=== PATIENT | female | born 1935 | race Caucasian/White ===

== ENCOUNTER 2016-09-07 23:11 | Observation (INO) | payer OTHER, MEDICARE ==
[~2016-09-07] VITALS: Ht 152.4 cm; Wt 62.9 kg
[~2016-09-07 23:11] MED LIST: AMOXICILLIN500 MG PO; ATORVASTATIN CA40 MG PO; AZITHROMYCIN500 M1 PO; CARDIZEM CD120 MG PO; COLACE100 MG PO; COUMADIN,JANTO1.5 MG PO; COUMADIN,JANTOVE1 MG PO; COUMADIN1 MG PO; COUMADIN2 MG PO; COZAAR50 MG PO; ELOCON 0.1% CRE15 GM TP; LISINOPRIL10 MG PO; LO-DOSE ASPIRIN81 M2 PO; LOSARTAN POTAS100 MG PO; MECLIZINE HCL25 MG PO; MIRALAX17 GM PO; PERI-COLACE TA1 EACH PO; PRAVASTATIN SOD80 MG PO; VITAMIN D2000 UNIT PO
[2016-09-08 00:30] LABS: EOSINOPHIL (%) 0.7 % (0-5); EOSINOPHIL COUNT 0.1 K/uL (0-0.3); HEMATOCRIT 36.3 % (36.0-46.0); IMMATURE GRANULOCYTE (%) 0.1 % (0.0-0.7); IMMATURE GRANULOCYTE COUNT 0.1 K/uL; LYMPHOCYTE COUNT 1.8 K/uL (1.0-2.8); MCH 33.3 PG (29.0-34.0); MCV 95.3 FL (83-99); MEAN PLAT.VOLUME 10.1 uM^3 (9.5-12.4); MONOCYTE (%) 8.4 % (3-12); MONOCYTE COUNT 0.6 K/uL (0-0.8); NEUTROPHIL (%) 65.8 % (45-76); NEUTROPHIL COUNT 4.7 K/uL (1.8-6.4); PLATELET COUNT 175 K/uL (156-360); RBC DIS.WIDTH-SD 43.6 % (39-53); RED BLOOD COUNT 3.81 M/uL (3.80-5.20); WHITE BLOOD COUNT 7.1 K/uL (4.1-10.2)
[2016-09-08 00:43] LABS: CHLORIDE 97 mEq/L (99-109); POTASSIUM 3.7 mEq/L (3.7-5.4); SODIUM 131 mEq/L (136-147)
[2016-09-08 00:45] LABS: GLUCOSE 94 mg/dL (70-99)
[2016-09-08 00:46] LABS: ANION GAP 10 MEQ/L (2-14)
[2016-09-08 00:47] LABS: TOTAL BILIRUBIN 0.3 mg/dL (0.0-1.0)
[2016-09-08 00:48] LABS: ALKALINE PHOSPHATASE 79 IU/L (3-129)
[2016-09-08 00:49] LABS: GFR ESTIMATE (CALCULATED) > 59 mL/min/
[2016-09-08 00:50] LABS: UREA NITROGEN (BUN) 13 mg/dL (9-23)
[2016-09-08 00:54] LABS: TROP-I INTERPRETATION NEGATIVE; TROPONIN-I < 0.01 ng/mL (0.0-0.30)
[2016-09-08 01:05] LABS: PROTHROMBIN TIME 31.5 (9.2-11.2)
[2016-09-08 01:43] LABS: ADD MIUA? YES; BILIRUBIN NEGATIVE; BLOOD TRACE; COLOR YELLOW ((YELLOW)); GLUCOSE (STRIP) NEGATIVE; KETONES NEGATIVE; LEUKOCYTES NEGATIVE; NITRITE NEGATIVE; PH, URINE 6.5 (5-8); PROTEIN (STRIP) NEGATIVE; SPECIFIC GRAVITY 1.007 (1.000-1.030); UROBILINOGEN 0.2 MG/DL (0.2-1.0)
[2016-09-08 01:58] LABS: BACTERIA NONE SEEN /HPF; EPITHELIAL CELLS RARE /HPF; MUCUS TRACE /LPF; RED BLOOD CELLS 0-5 /HPF (0-5); UCUL ADDED? NO; WHITE BLOOD CELLS 0-5 /HPF (0-5)
[2016-09-08 04:31] VITALS: BP 141/68
[2016-09-08 09:30] VITALS: BP 135/76
[2016-09-08] MEDS ORDERED: LOSARTAN POTASS25 MG PO (09:42)
[2016-09-08] MEDS ORDERED: COUMADIN1 MG PO (12:03)
== END 2016-09-08 14:12 | disposition home or self-care (01) ==
LOC: EME 23:11 → EDOF 09-08 02:39 → 5WEST 09-08 03:50
PROVIDERS: Emergency Medicine
DX: R53.1 Weakness (principal); E87.1 Hypo-osmolality and hyponatremia; I10 Essential (primary) hypertension; I48.0 Paroxysmal atrial fibrillation; K21.9 Gastro-esophageal reflux disease without esophagitis; R06.02 Shortness of breath; F41.9 Anxiety disorder, unspecified; Z86.73 Personal history of transient ischemic attack (TIA), and cerebral infarction without residual deficits; R41.0 Disorientation, unspecified; Z79.01 Long term (current) use of anticoagulants; Z88.0 Allergy status to penicillin; Z88.1 Allergy status to other antibiotic agents; Z88.8 Allergy status to other drugs, medicaments and biological substances; Z91.041 Radiographic dye allergy status; Z59.2 Discord with neighbors, lodgers and landlord
CPT/HCPCS: 70450; 71020; 80053; 81003; 84484; 85025; 85610; 93005; 99281; 99284; G0378; J7040

== ENCOUNTER 2017-04-26 13:04 | Observation (INO) | payer OTHER, MEDICARE ==
[~2017-04-26] VITALS: Ht 152.4 cm; Wt 61.8 kg
[~2017-04-26 13:04] MED LIST changes: +LOSARTAN POTASS25 MG PO
[2017-04-26 14:34] LABS: HEMATOCRIT 39.8 % (36.0-46.0); MCH 33.7 PG (29.0-34.0); MCHC 34.9 G/DL (30.0-36.0); MCV 96.4 FL (83-99); MEAN PLAT.VOLUME 9.7 uM^3 (9.5-12.4); PLATELET COUNT 196 K/uL (156-360); RBC DIS.WIDTH-CV 12.7 % (11.8-14.6); RBC DIS.WIDTH-SD 45.6 % (39-53); RED BLOOD COUNT 4.13 M/uL (3.80-5.20); WHITE BLOOD COUNT 8.1 K/uL (4.1-10.2)
[2017-04-26 14:47] LABS: CHLORIDE 100 mEq/L (99-109); POTASSIUM 4.1 mEq/L (3.7-5.4); SODIUM 133 mEq/L (136-147)
[2017-04-26 14:49] LABS: GLUCOSE 105 mg/dL (70-99)
[2017-04-26 14:50] LABS: ANION GAP 10 MEQ/L (2-14)
[2017-04-26 14:52] LABS: GFR ESTIMATE (CALCULATED) > 59 mL/min/
[2017-04-26 14:53] LABS: UREA NITROGEN (BUN) 16 mg/dL (9-23)
[2017-04-26 17:51] LABS: ADD MIUA? NO; BILIRUBIN NEGATIVE; BLOOD NEGATIVE; COLOR COLORLESS ((YELLOW)); GLUCOSE (STRIP) NEGATIVE; KETONES 5; LEUKOCYTES NEGATIVE; NITRITE NEGATIVE; PROTEIN (STRIP) NEGATIVE; SPECIFIC GRAVITY 1.004 (1.000-1.030); UCUL ADDED? NO; UROBILINOGEN 0.2 MG/DL (0.2-1.0)
[2017-04-26 20:57] LABS: INTER. NORMALIZED RATIO 4.3; PROTHROMBIN TIME 50.6 SEC (10.2-12.9)
[2017-04-26 22:37] VITALS: BP 182/80
[2017-04-26 22:45] LABS: Estimated Average Glucose 123 mg/dL (70-123); HEMOGLOBIN A1c (GLYCOHEMOGLOB) 5.9 % HGB (Below 5.7)
[2017-04-26 23:10] VITALS: BP 150/82
[2017-04-27 04:47] VITALS: BP 159/73
[2017-04-27 05:55] LABS: MCH 33.1 PG (29.0-34.0); MCHC 33.8 G/DL (30.0-36.0); PLATELET COUNT 173 K/uL (156-360); RBC DIS.WIDTH-CV 12.8 % (11.8-14.6); RED BLOOD COUNT 4.08 M/uL (3.80-5.20); WHITE BLOOD COUNT 6.6 K/uL (4.1-10.2)
[2017-04-27 06:27] LABS: ALKALINE PHOSPHATASE 72 IU/L (3-129); ANION GAP 8 MEQ/L (2-14); CHLORIDE 105 MEQ/L (99-109); GFR ESTIMATE (CALCULATED) > 59 mL/min/; GLUCOSE 105 mg/dL (70-99); POTASSIUM 4.4 MEQ/L (3.7-5.4); SAMPLE HEMOLYSIS CHECK 0; SAMPLE ICTERIC CHECK 0; SAMPLE LIPEMIA CHECK 0; SODIUM 139 MEQ/L (136-147); TOTAL BILIRUBIN 0.4 MG/DL (0.0-1.0); UREA NITROGEN (BUN) 15 mg/dL (9-23)
[2017-04-27 06:29] LABS: INTER. NORMALIZED RATIO 3.9; PROTHROMBIN TIME 45.7 SEC (10.2-12.9)
[2017-04-27 07:25] VITALS: BP 140/60
[2017-04-27 07:39] LABS: HDL CHOLESTEROL 63 MG/DL (Desirable>=50); LDL CHOLESTEROL 120 mg/dL (Desirable<100); NON-HDL CHOLESTEROL 136 mg/dL (Desirable<160); SAMPLE HEMOLYSIS CHECK 0; SAMPLE ICTERIC CHECK 0; SAMPLE LIPEMIA CHECK 0; TOTAL CHOLESTEROL 199 mg/dL (Desirable<200); TRIGLYCERIDES 81 MG/DL (Normal: <150)
[2017-04-27 12:18] VITALS: BP 137/74
== END 2017-04-27 13:52 | disposition home or self-care (01) ==
LOC: EME 13:04 → EDOF 20:08 → 5WEST 20:08 → EDOF 20:08 → ENRESERV 20:10 → EDOF 20:30 → 5WEST 21:41
PROVIDERS: Emergency Medicine; Internal Medicine
DX: R42 Dizziness and giddiness (principal); I11.0 Hypertensive heart disease with heart failure; I50.9 Heart failure, unspecified; R79.1 Abnormal coagulation profile; R73.03 Prediabetes; Z86.73 Personal history of transient ischemic attack (TIA), and cerebral infarction without residual deficits; I48.0 Paroxysmal atrial fibrillation; Z79.01 Long term (current) use of anticoagulants; E78.5 Hyperlipidemia, unspecified; J44.9 Chronic obstructive pulmonary disease, unspecified; E87.1 Hypo-osmolality and hyponatremia; K21.9 Gastro-esophageal reflux disease without esophagitis; Z88.0 Allergy status to penicillin; Z88.8 Allergy status to other drugs, medicaments and biological substances; Z91.041 Radiographic dye allergy status
CPT/HCPCS: 70450; 70551; 71020; 80048; 80053; 80061; 81003; 83036; 85027; 85610; 93005; 99281; 99285; G0378; G8978 GP CH; G8979 GP CH; G8980 GP CH; G8987 GO CH; G8988 GO CH; G8989 GO CH; J7030

== ENCOUNTER 2017-05-08 23:22 | Emergency (ER) | payer OTHER, MEDICARE ==
[~2017-05-08] VITALS: Ht 152.4 cm; Wt 62.2 kg
[2017-05-09 00:11] LABS: EOSINOPHIL (%) 0.5 % (0-5); HEMATOCRIT 38.9 % (36.0-46.0); IMMATURE GRANULOCYTE (%) 0.3 % (0.0-0.7); LYMPHOCYTE COUNT 1.7 K/uL (1.0-2.8); MCH 33.6 PG (29.0-34.0); MCHC 35.7 G/DL (30.0-36.0); MEAN PLAT.VOLUME 11.4 uM^3 (9.5-12.4); MONOCYTE (%) 6.9 % (3-12); MONOCYTE COUNT 0.5 K/uL (0-0.8); NEUTROPHIL (%) 68.9 % (45-76); PLATELET COUNT 218 K/uL (156-360); RBC DIS.WIDTH-CV 12.5 % (11.8-14.6); RBC DIS.WIDTH-SD 43.4 % (39-53); RED BLOOD COUNT 4.14 M/uL (3.80-5.20); WHITE BLOOD COUNT 7.3 K/uL (4.1-10.2)
[2017-05-09 00:29] LABS: TROP-I INTERPRETATION NEGATIVE; TROPONIN-I < 0.01 ng/mL (0.0-0.30)
[2017-05-09 00:36] LABS: PROTHROMBIN TIME 54.7 SEC (10.2-12.9)
[2017-05-09 00:37] LABS: INTER. NORMALIZED RATIO 4.7
[2017-05-09 00:39] LABS: PTT 42.7 SEC (25-37)
[2017-05-09 00:41] LABS: CHLORIDE 99 mEq/L (99-109); POTASSIUM 3.3 mEq/L (3.7-5.4); SODIUM 130 mEq/L (136-147)
[2017-05-09 00:43] LABS: GLUCOSE 110 mg/dL (70-99)
[2017-05-09 00:44] LABS: ANION GAP 11 MEQ/L (2-14)
[2017-05-09 00:46] LABS: GFR ESTIMATE (CALCULATED) > 59 mL/min/
[2017-05-09 00:47] LABS: UREA NITROGEN (BUN) 12 mg/dL (9-23)
[2017-05-09 03:48] LABS: ADD MIUA? YES; BILIRUBIN NEGATIVE; BLOOD SMALL; COLOR STRAW ((YELLOW)); GLUCOSE (STRIP) NEGATIVE; KETONES 5; LEUKOCYTES NEGATIVE; NITRITE NEGATIVE; PROTEIN (STRIP) NEGATIVE; SPECIFIC GRAVITY 1.004 (1.000-1.030); UROBILINOGEN 0.2 MG/DL (0.2-1.0)
[2017-05-09 03:49] LABS: BACTERIA RARE /HPF; EPITHELIAL CELLS RARE /HPF; MUCUS TRACE /LPF; RED BLOOD CELLS 0-5 /HPF (0-5); UCUL ADDED? NO; WHITE BLOOD CELLS 0-5 /HPF (0-5)
[2017-05-09 05:00] VITALS: BP 147/86
== END 2017-05-09 05:01 | disposition home or self-care (01) ==
LOC: EME 23:22
PROVIDERS: Emergency Medicine
DX: R42 Dizziness and giddiness (principal); I11.0 Hypertensive heart disease with heart failure; I50.9 Heart failure, unspecified; Z91.81 History of falling; Z86.73 Personal history of transient ischemic attack (TIA), and cerebral infarction without residual deficits; Z79.01 Long term (current) use of anticoagulants; J45.909 Unspecified asthma, uncomplicated; K21.9 Gastro-esophageal reflux disease without esophagitis; F41.9 Anxiety disorder, unspecified; Z88.0 Allergy status to penicillin; Z88.8 Allergy status to other drugs, medicaments and biological substances
CPT/HCPCS: 70450; 71010; 80048; 81003; 84484; 85025; 85610; 85730; 93005; 99281; 99285; J7030

== ENCOUNTER 2017-08-28 17:52 | Emergency (ER) | payer OTHER, MEDICARE ==
[~2017-08-28] VITALS: Ht 152.4 cm; Wt 55.1 kg
[2017-08-28 18:43] LABS: HEMATOCRIT 43.2 % (36.0-46.0); HEMOGLOBIN 14.9 G/DL (11.9-15.5); MCH 34.1 PG (29.0-34.0); MCHC 34.5 G/DL (30.0-36.0); MCV 98.9 FL (83-99); PLATELET COUNT 199 K/uL (156-360); RBC DIS.WIDTH-CV 13.1 % (11.8-14.6); RBC DIS.WIDTH-SD 48.4 % (39-53); RED BLOOD COUNT 4.37 M/uL (3.80-5.20); WHITE BLOOD COUNT 7.6 K/uL (4.1-10.2)
[2017-08-28 18:54] LABS: CHLORIDE 101 mEq/L (99-109); POTASSIUM 3.7 mEq/L (3.7-5.4); SODIUM 136 mEq/L (136-147)
[2017-08-28 18:55] LABS: GLUCOSE 95 mg/dL (70-99)
[2017-08-28 18:59] LABS: CREATININE 0.7 mg/dL (0.6-1.3); GFR ESTIMATE (CALCULATED) > 59 mL/min/
[2017-08-28 19:00] LABS: UREA NITROGEN (BUN) 14 mg/dL (9-23)
[2017-08-28 19:06] LABS: TROP-I INTERPRETATION NEGATIVE; TROPONIN-I < 0.01 ng/mL (0.0-0.30)
[2017-08-28 21:47] VITALS: BP 145/72
== END 2017-08-28 21:57 | disposition home or self-care (01) ==
LOC: EME 17:52
DX: I49.3 Ventricular premature depolarization (principal); I48.91 Unspecified atrial fibrillation; I11.0 Hypertensive heart disease with heart failure; J45.909 Unspecified asthma, uncomplicated; K21.9 Gastro-esophageal reflux disease without esophagitis; F41.9 Anxiety disorder, unspecified; Z79.01 Long term (current) use of anticoagulants; Z86.73 Personal history of transient ischemic attack (TIA), and cerebral infarction without residual deficits; Z88.0 Allergy status to penicillin; Z88.8 Allergy status to other drugs, medicaments and biological substances; Z91.041 Radiographic dye allergy status
CPT/HCPCS: 71046; 80048; 84484; 85027; 93005; 99281; 99285

== ENCOUNTER 2017-09-29 09:26 | Emergency (ER) | payer OTHER, MEDICARE ==
[~2017-09-29] VITALS: Ht 152.4 cm; Wt 56.9 kg
[2017-09-29 10:45] LABS: BASOPHIL (%) 0.6 % (0-1); BASOPHIL COUNT 0.1 K/uL (0-0.1); EOSINOPHIL (%) 0.6 % (0-5); EOSINOPHIL COUNT 0.1 K/uL (0-0.3); HEMATOCRIT 37.4 % (36.0-46.0); HEMOGLOBIN 13.3 G/DL (11.9-15.5); IMMATURE GRANULOCYTE (%) 0.5 % (0.0-0.7); LYMPHOCYTE (%) 11.9 % (15-42); MCH 34.8 PG (29.0-34.0); MCHC 35.6 G/DL (30.0-36.0); MCV 97.9 FL (83-99); MONOCYTE (%) 6.3 % (3-12); MONOCYTE COUNT 0.5 K/uL (0-0.8); NEUTROPHIL (%) 80.1 % (45-76); NEUTROPHIL COUNT 6.8 K/uL (1.8-6.4); PLATELET COUNT 184 K/uL (156-360); RBC DIS.WIDTH-CV 12.8 % (11.8-14.6); RBC DIS.WIDTH-SD 45.9 % (39-53); RED BLOOD COUNT 3.82 M/uL (3.80-5.20); WHITE BLOOD COUNT 8.5 K/uL (4.1-10.2)
[2017-09-29 10:50] LABS: INTER. NORMALIZED RATIO 3.3
[2017-09-29 10:55] LABS: CHLORIDE 102 mEq/L (99-109); POTASSIUM 4.1 mEq/L (3.7-5.4); SODIUM 134 mEq/L (136-147)
[2017-09-29 10:57] LABS: GLUCOSE 90 mg/dL (70-99)
[2017-09-29 11:01] LABS: CREATININE 0.7 mg/dL (0.6-1.3); GFR ESTIMATE (CALCULATED) > 59 mL/min/
[2017-09-29 11:02] LABS: UREA NITROGEN (BUN) 21 mg/dL (9-23)
[2017-09-29 12:29] VITALS: BP 143/75
[2017-09-29 13:44] LABS: APPEARANCE CLEAR ((CLEAR)); BILIRUBIN NEGATIVE; BLOOD SMALL; COLOR COLORLESS ((YELLOW)); GLUCOSE (STRIP) NEGATIVE; KETONES 5; LEUKOCYTES NEGATIVE; NITRITE NEGATIVE; PROTEIN (STRIP) NEGATIVE; SPECIFIC GRAVITY 1.004 (1.000-1.030); UROBILINOGEN 0.2 MG/DL (0.2-1.0)
[2017-09-29 13:49] LABS: BACTERIA NONE SEEN /HPF; EPITHELIAL CELLS RARE /HPF; MUCUS NONE SEEN /LPF; RED BLOOD CELLS 0-5 /HPF (0-5); UCUL ADDED? NO; WHITE BLOOD CELLS 0-5 /HPF (0-5)
== END 2017-09-29 14:04 | disposition home or self-care (01) ==
LOC: EME 09:26
PROVIDERS: Emergency Medicine
DX: S09.90XA Unspecified injury of head, initial encounter (principal); W18.30XA Fall on same level, unspecified, initial encounter; Z79.01 Long term (current) use of anticoagulants; I11.0 Hypertensive heart disease with heart failure; I50.9 Heart failure, unspecified; I48.91 Unspecified atrial fibrillation; J45.909 Unspecified asthma, uncomplicated; K21.9 Gastro-esophageal reflux disease without esophagitis; Z86.73 Personal history of transient ischemic attack (TIA), and cerebral infarction without residual deficits; F41.9 Anxiety disorder, unspecified; Z88.0 Allergy status to penicillin; Z88.8 Allergy status to other drugs, medicaments and biological substances
CPT/HCPCS: 70450; 71046; 80048; 81003; 85025; 85610; 93005; 99281; 99284

== ENCOUNTER 2017-10-30 19:24 | Inpatient (IN) | payer OTHER, MEDICARE ==
[~2017-10-30] VITALS: Ht 152.4 cm; Wt 51.7 kg
[2017-10-30 20:06] LABS: BASOPHIL (%) 0.4 % (0-1); EOSINOPHIL COUNT 0.1 K/uL (0-0.3); HEMATOCRIT 37.8 % (36.0-46.0); HEMOGLOBIN 13.2 G/DL (11.9-15.5); IMMATURE GRANULOCYTE (%) 0.1 % (0.0-0.7); LYMPHOCYTE COUNT 1.3 K/uL (1.0-2.8); MCHC 34.9 G/DL (30.0-36.0); MCV 97.4 FL (83-99); MONOCYTE (%) 6.3 % (3-12); MONOCYTE COUNT 0.4 K/uL (0-0.8); NEUTROPHIL (%) 73.2 % (45-76); PLATELET COUNT 160 K/uL (156-360); RBC DIS.WIDTH-CV 12.8 % (11.8-14.6); RBC DIS.WIDTH-SD 45.6 % (39-53); RED BLOOD COUNT 3.88 M/uL (3.80-5.20); WHITE BLOOD COUNT 6.8 K/uL (4.1-10.2)
[2017-10-30 20:14] LABS: ALBUMIN 3.6 g/dL (3.2-4.8); CHLORIDE 102 mEq/L (99-109); POTASSIUM 3.7 mEq/L (3.7-5.4); SODIUM 135 mEq/L (136-147)
[2017-10-30 20:16] LABS: INTER. NORMALIZED RATIO 2.9
[2017-10-30 20:17] LABS: GLUCOSE 98 mg/dL (70-99); TOTAL PROTEIN 5.7 g/dL (6.4-8.3)
[2017-10-30 20:19] LABS: PTT 38.3 SEC (25-37); TOTAL BILIRUBIN 0.3 mg/dL (0.0-1.0)
[2017-10-30 20:20] LABS: ALKALINE PHOSPHATASE 104 IU/L (3-129); CREATININE 0.6 mg/dL (0.6-1.3); GFR ESTIMATE (CALCULATED) > 59 mL/min/
[2017-10-30 20:21] LABS: UREA NITROGEN (BUN) 15 mg/dL (9-23)
[2017-10-30 20:22] LABS: AST (GOT) 20 IU/L (2-34)
[2017-10-30 20:23] LABS: ALT (GPT) 25 IU/L (3-49)
[2017-10-30 21:23] LABS: APPEARANCE CLEAR ((CLEAR)); BILIRUBIN NEGATIVE; BLOOD NEGATIVE; COLOR COLORLESS ((YELLOW)); GLUCOSE (STRIP) NEGATIVE; KETONES 5; LEUKOCYTES NEGATIVE; NITRITE NEGATIVE; PROTEIN (STRIP) NEGATIVE; SPECIFIC GRAVITY 1.004 (1.000-1.030); UCUL ADDED? NO; UROBILINOGEN 0.2 MG/DL (0.2-1.0)
[2017-10-31] MEDS ORDERED: MIRALAX17 GM PO (00:20)
[2017-10-31 02:53] LABS: HDL CHOLESTEROL 57 MG/DL (Desirable>=50); LDL CHOLESTEROL 105 mg/dL (Desirable<100); NON-HDL CHOLESTEROL 117 mg/dL (Desirable<160); TOTAL CHOLESTEROL 174 mg/dL (Desirable<200); TRIGLYCERIDES 60 MG/DL (Normal: <150)
[2017-10-31 03:04] VITALS: BP 151/72
[2017-10-31 06:08] LABS: HEMATOCRIT 34.9 % (36.0-46.0); HEMOGLOBIN 12.2 G/DL (11.9-15.5); MCH 34.4 PG (29.0-34.0); MCV 98.3 FL (83-99); PLATELET COUNT 151 K/uL (156-360); RBC DIS.WIDTH-CV 12.7 % (11.8-14.6); RBC DIS.WIDTH-SD 45.5 % (39-53); RED BLOOD COUNT 3.55 M/uL (3.80-5.20); WHITE BLOOD COUNT 6.1 K/uL (4.1-10.2)
[2017-10-31 06:11] LABS: INTER. NORMALIZED RATIO 2.9
[2017-10-31 06:36] LABS: CHLORIDE 106 MEQ/L (99-109); CREATININE 0.6 MG/DL (0.6-1.3); GFR ESTIMATE (CALCULATED) > 59 mL/min/; GLUCOSE 120 mg/dL (70-99); POTASSIUM 3.6 MEQ/L (3.7-5.4); SODIUM 140 MEQ/L (136-147); UREA NITROGEN (BUN) 10 mg/dL (9-23)
[2017-10-31 08:00] VITALS: BP 127/71
[2017-10-31 14:28] LABS: HEMOGLOBIN A1c (GLYCOHEMOGLOB) 5.7 % (Below 5.7)
[2017-10-31 15:50] VITALS: BP 118/61
[2017-10-31 19:58] VITALS: BP 113/65
[2017-11-01] VITALS: BP 146/69
[2017-11-01 04:00] VITALS: BP 137/72
[2017-11-01 08:18] VITALS: BP 139/67
[2017-11-01] MEDS ORDERED: ANTIVERT12.5 MG PO (10:59)
[2017-11-01 12:41] VITALS: BP 138/70
[2017-11-01 16:43] VITALS: BP 135/73
== END 2017-11-01 17:18 | disposition home or self-care (01) | DRG 69 ==
LOC: EME 19:24 → 5SOUTH 10-31 01:33 → EDOF 10-31 01:33 → CANRESERV 10-31 01:37 → ENRESERV 10-31 01:37 → 5SOUTH 10-31 02:39 → ENPENDDIS 11-01 11:29 → 5SOUTH 11-01 17:18
PROVIDERS: Emergency Medicine; Hospitalist
DX: G45.9 Transient cerebral ischemic attack, unspecified (principal); H81.399 Other peripheral vertigo, unspecified ear; I48.2 Chronic atrial fibrillation; I11.0 Hypertensive heart disease with heart failure; E87.1 Hypo-osmolality and hyponatremia; E78.5 Hyperlipidemia, unspecified; F32.9 Major depressive disorder, single episode, unspecified; F41.9 Anxiety disorder, unspecified; H91.90 Unspecified hearing loss, unspecified ear; I73.9 Peripheral vascular disease, unspecified; K21.9 Gastro-esophageal reflux disease without esophagitis; J45.909 Unspecified asthma, uncomplicated; H93.19 Tinnitus, unspecified ear; Z86.73 Personal history of transient ischemic attack (TIA), and cerebral infarction without residual deficits; Z90.710 Acquired absence of both cervix and uterus; Z79.01 Long term (current) use of anticoagulants; Y93.G1 Activity, food preparation and clean up; Z91.81 History of falling
CPT/HCPCS: 70450; 70551; 71045; 76536; 80048; 80053; 80061; 81003; 83036; 85025; 85027; 85610; 85730; 87502; 93005; 93880; 99281; 99285; J7030

== ENCOUNTER 2017-11-07 04:18 | Emergency (ER) | payer OTHER, MEDICARE ==
[~2017-11-07] VITALS: Ht 152.4 cm; Wt 54.7 kg
[~2017-11-07 04:18] MED LIST changes: +ANTIVERT12.5 MG PO
[2017-11-07 05:38] LABS: BASOPHIL (%) 0.5 % (0-1); EOSINOPHIL (%) 0.9 % (0-5); EOSINOPHIL COUNT 0.1 K/uL (0-0.3); HEMATOCRIT 37.1 % (36.0-46.0); IMMATURE GRANULOCYTE (%) 0.3 % (0.0-0.7); LYMPHOCYTE (%) 17.6 % (15-42); LYMPHOCYTE COUNT 1.1 K/uL (1.0-2.8); MCH 34.5 PG (29.0-34.0); MCV 98.4 FL (83-99); MONOCYTE COUNT 0.5 K/uL (0-0.8); NEUTROPHIL (%) 73.7 % (45-76); NEUTROPHIL COUNT 4.8 K/uL (1.8-6.4); PLATELET COUNT 164 K/uL (156-360); RBC DIS.WIDTH-CV 12.8 % (11.8-14.6); RBC DIS.WIDTH-SD 46.5 % (39-53); RED BLOOD COUNT 3.77 M/uL (3.80-5.20); WHITE BLOOD COUNT 6.5 K/uL (4.1-10.2)
[2017-11-07 05:44] LABS: INTER. NORMALIZED RATIO 2.5
[2017-11-07 05:52] LABS: ALBUMIN 3.7 g/dL (3.2-4.8); CHLORIDE 100 mEq/L (99-109); POTASSIUM 3.7 mEq/L (3.7-5.4); SODIUM 131 mEq/L (136-147)
[2017-11-07 05:55] LABS: GLUCOSE 105 mg/dL (70-99); TOTAL PROTEIN 5.6 g/dL (6.4-8.3)
[2017-11-07 05:57] LABS: TOTAL BILIRUBIN 0.3 mg/dL (0.0-1.0)
[2017-11-07 05:58] LABS: ALKALINE PHOSPHATASE 129 IU/L (3-129); CREATININE 0.6 mg/dL (0.6-1.3); GFR ESTIMATE (CALCULATED) > 59 mL/min/
[2017-11-07 05:59] LABS: UREA NITROGEN (BUN) 15 mg/dL (9-23)
[2017-11-07 06:00] LABS: AST (GOT) 24 IU/L (2-34)
[2017-11-07 06:01] LABS: ALT (GPT) 30 IU/L (3-49)
[2017-11-07 06:08] LABS: TROP-I INTERPRETATION NEGATIVE; TROPONIN-I < 0.01 ng/mL (0.0-0.30)
[2017-11-07 06:14] LABS: APPEARANCE CLEAR ((CLEAR)); BILIRUBIN NEGATIVE; BLOOD SMALL; COLOR COLORLESS ((YELLOW)); GLUCOSE (STRIP) NEGATIVE; KETONES NEGATIVE; LEUKOCYTES NEGATIVE; NITRITE NEGATIVE; PROTEIN (STRIP) NEGATIVE; SPECIFIC GRAVITY 1.003 (1.000-1.030); UROBILINOGEN 0.2 MG/DL (0.2-1.0)
[2017-11-07 06:19] LABS: BACTERIA NONE SEEN /HPF; EPITHELIAL CELLS RARE /HPF; MUCUS NONE SEEN /LPF; RED BLOOD CELLS 0-5 /HPF (0-5); UCUL ADDED? NO; WHITE BLOOD CELLS NONE SEEN /HPF (0-5)
[2017-11-07 06:38] VITALS: BP 135/80
== END 2017-11-07 06:38 | disposition home or self-care (01) ==
LOC: EME 04:18
PROVIDERS: Emergency Medicine
DX: R42 Dizziness and giddiness (principal); I48.91 Unspecified atrial fibrillation; J45.909 Unspecified asthma, uncomplicated; Z86.73 Personal history of transient ischemic attack (TIA), and cerebral infarction without residual deficits; R73.03 Prediabetes; I11.0 Hypertensive heart disease with heart failure; I50.9 Heart failure, unspecified; K21.9 Gastro-esophageal reflux disease without esophagitis; F41.9 Anxiety disorder, unspecified; Z88.0 Allergy status to penicillin; Z88.8 Allergy status to other drugs, medicaments and biological substances
CPT/HCPCS: 80053; 81003; 82010; 84484; 85025; 85610; 93005; 99281; 99284

== ENCOUNTER 2018-02-25 19:28 | Emergency (ER) | payer OTHER, MEDICARE ==
[~2018-02-25] VITALS: Ht 152.4 cm; Wt 56.3 kg
[2018-02-25 21:44] LABS: HEMOGLOBIN 13.9 G/DL (11.9-15.5); MCH 33.8 PG (29.0-34.0); MCHC 34.8 G/DL (30.0-36.0); MCV 97.3 FL (83-99); PLATELET COUNT 145 K/uL (156-360); RBC DIS.WIDTH-CV 13.4 % (11.8-14.6); RBC DIS.WIDTH-SD 48.8 % (39-53); RED BLOOD COUNT 4.11 M/uL (3.80-5.20); WHITE BLOOD COUNT 8.9 K/uL (4.1-10.2)
[2018-02-25 21:46] LABS: CHLORIDE 101 mEq/L (99-109); POTASSIUM 3.7 mEq/L (3.7-5.4); SODIUM 136 mEq/L (136-147)
[2018-02-25 21:48] LABS: GLUCOSE 110 mg/dL (70-99); TOTAL PROTEIN 6.5 g/dL (6.4-8.3)
[2018-02-25 21:50] LABS: TOTAL BILIRUBIN 0.6 mg/dL (0.0-1.0)
[2018-02-25 21:52] LABS: ALKALINE PHOSPHATASE 110 IU/L (3-129); CREATININE 0.8 mg/dL (0.6-1.3); GFR ESTIMATE (CALCULATED) > 59 mL/min/
[2018-02-25 21:53] LABS: UREA NITROGEN (BUN) 15 mg/dL (9-23)
[2018-02-25 21:54] LABS: AST (GOT) 22 IU/L (2-34)
[2018-02-25 21:55] LABS: ALT (GPT) 31 IU/L (3-49)
[2018-02-25 21:55] LABS: APPEARANCE CLEAR ((CLEAR)); BILIRUBIN NEGATIVE; BLOOD MODERATE; COLOR YELLOW ((YELLOW)); GLUCOSE (STRIP) NEGATIVE; KETONES 20; LEUKOCYTES NEGATIVE; NITRITE NEGATIVE; PROTEIN (STRIP) 30; SPECIFIC GRAVITY 1.017 (1.000-1.030); UROBILINOGEN 0.2 MG/DL (0.2-1.0)
[2018-02-25 22:02] LABS: INTER. NORMALIZED RATIO 5.3
[2018-02-25 22:22] LABS: BACTERIA RARE /HPF; EPITHELIAL CELLS RARE /HPF; MUCUS TRACE /LPF; RED BLOOD CELLS 0-5 /HPF (0-5); UCUL ADDED? NO; WHITE BLOOD CELLS 0-5 /HPF (0-5)
[2018-02-26] MEDS ORDERED: NORCO 5/3251 TABLET PO (00:52)
[2018-02-26 01:50] VITALS: BP 149/97
[2018-02-27] MEDS ORDERED: LIDODERM 5% P1 PATCH TD (03:23)
== END 2018-02-26 01:50 | disposition home or self-care (01) ==
LOC: EXP 19:28 → EME 19:28 → EXP 02-26 01:50
PROVIDERS: Physician Assistant
DX: M54.5 Low back pain (principal); M48.56XA Collapsed vertebra, not elsewhere classified, lumbar region, initial encounter for fracture; R79.1 Abnormal coagulation profile; R22.43 Localized swelling, mass and lump, lower limb, bilateral; I11.0 Hypertensive heart disease with heart failure; I50.9 Heart failure, unspecified; J45.909 Unspecified asthma, uncomplicated; G89.29 Other chronic pain; K21.9 Gastro-esophageal reflux disease without esophagitis; F41.9 Anxiety disorder, unspecified; Z86.73 Personal history of transient ischemic attack (TIA), and cerebral infarction without residual deficits; Z79.01 Long term (current) use of anticoagulants; Z88.0 Allergy status to penicillin; Z88.8 Allergy status to other drugs, medicaments and biological substances
CPT/HCPCS: 72131; 74176; 80053; 81003; 85027; 85610; 93970; 99281; 99284

== ENCOUNTER 2018-02-26 21:36 | Inpatient (IN) | payer OTHER, MEDICARE ==
[~2018-02-26] VITALS: Ht 152.4 cm; Wt 54.9 kg
[~2018-02-26 21:36] MED LIST changes: +NORCO 5/3251 TABLET PO
[2018-02-26 22:40] LABS: HEMATOCRIT 38.6 % (36.0-46.0); HEMOGLOBIN 13.6 G/DL (11.9-15.5); MCH 34.3 PG (29.0-34.0); MCHC 35.2 G/DL (30.0-36.0); MCV 97.2 FL (83-99); PLATELET COUNT 152 K/uL (156-360); RBC DIS.WIDTH-CV 13.3 % (11.8-14.6); RBC DIS.WIDTH-SD 47.9 % (39-53); RED BLOOD COUNT 3.97 M/uL (3.80-5.20)
[2018-02-26 22:48] LABS: PTT 39.8 SEC (25-37)
[2018-02-26 22:52] LABS: APPEARANCE CLOUDY ((CLEAR)); BILIRUBIN NEGATIVE; BLOOD MODERATE; COLOR YELLOW ((YELLOW)); GLUCOSE (STRIP) NEGATIVE; KETONES 20; LEUKOCYTES NEGATIVE; NITRITE NEGATIVE; PROTEIN (STRIP) 30; SPECIFIC GRAVITY 1.013 (1.000-1.030); UROBILINOGEN 0.2 MG/DL (0.2-1.0)
[2018-02-26 22:57] LABS: INTER. NORMALIZED RATIO 4.5
[2018-02-26 23:00] LABS: BACTERIA RARE /HPF; CALCIUM OXALATE CRYSTALS 4+ /HPF; EPITHELIAL CELLS RARE /HPF; HYALINE CASTS 0-5 /LPF; MUCUS TRACE /LPF; UCUL ADDED? YES
[2018-02-26 23:21] LABS: ALBUMIN 3.9 g/dL (3.2-4.8)
[2018-02-26 23:22] LABS: CHLORIDE 99 mEq/L (99-109); POTASSIUM 3.8 mEq/L (3.7-5.4); SODIUM 133 mEq/L (136-147)
[2018-02-26 23:24] LABS: GLUCOSE 115 mg/dL (70-99); TOTAL PROTEIN 6.1 g/dL (6.4-8.3)
[2018-02-26 23:26] LABS: TOTAL BILIRUBIN 0.8 mg/dL (0.0-1.0)
[2018-02-26 23:27] LABS: ALKALINE PHOSPHATASE 100 IU/L (3-129)
[2018-02-26 23:28] LABS: CREATININE 0.7 mg/dL (0.6-1.3); GFR ESTIMATE (CALCULATED) > 59 mL/min/
[2018-02-26 23:29] LABS: AST (GOT) 26 IU/L (2-34); UREA NITROGEN (BUN) 13 mg/dL (9-23)
[2018-02-26 23:30] LABS: ALT (GPT) 28 IU/L (3-49)
[2018-02-26 23:31] LABS: LIPASE 34 U/L (1.0-51.0)
[2018-02-27] MEDS ORDERED: LIDODERM 5% P1 PATCH TD (03:23)
[2018-02-27 05:35] LABS: TROP-I INTERPRETATION NEGATIVE; TROPONIN-I 0.08 ng/mL (0.0-0.30)
[2018-02-27 08:24] VITALS: BP 164/87
[2018-02-27 11:52] VITALS: BP 141/69
[2018-02-27 12:25] LABS: TROP-I INTERPRETATION NEGATIVE; TROPONIN-I < 0.01 ng/mL (0.0-0.30)
[2018-02-27 12:28] LABS: INTER. NORMALIZED RATIO 4.7
[2018-02-27 16:32] VITALS: BP 118/60
[2018-02-27 19:00] LABS: TROP-I INTERPRETATION NEGATIVE; TROPONIN-I < 0.01 ng/mL (0.0-0.30)
[2018-02-27 19:34] VITALS: BP 155/75
[2018-02-27 23:15] VITALS: BP 171/84
[2018-02-27 23:42] VITALS: BP 157/79
[2018-02-28 05:30] LABS: HEMATOCRIT 37.6 % (36.0-46.0); HEMOGLOBIN 13.1 G/DL (11.9-15.5); MCH 33.7 PG (29.0-34.0); MCHC 34.8 G/DL (30.0-36.0); MCV 96.7 FL (83-99); PLATELET COUNT 168 K/uL (156-360); RBC DIS.WIDTH-SD 46.5 % (39-53); RED BLOOD COUNT 3.89 M/uL (3.80-5.20); WHITE BLOOD COUNT 7.8 K/uL (4.1-10.2)
[2018-02-28 05:51] LABS: CHLORIDE 102 MEQ/L (99-109); CREATININE 0.5 MG/DL (0.6-1.3); GFR ESTIMATE (CALCULATED) > 59 mL/min/; GLUCOSE 110 mg/dL (70-99); POTASSIUM 3.5 MEQ/L (3.7-5.4); SODIUM 136 MEQ/L (136-147); UREA NITROGEN (BUN) 14 mg/dL (9-23)
[2018-02-28 05:59] LABS: PTT 35.1 SEC (25-37)
[2018-02-28 06:12] LABS: INTER. NORMALIZED RATIO 2.7
[2018-02-28 07:23] VITALS: BP 150/82
[2018-02-28 09:01] VITALS: BP 121/57
[2018-02-28 11:42] VITALS: BP 136/66
[2018-02-28 15:43] VITALS: BP 143/68
== END 2018-02-28 17:39 | disposition home or self-care (01) | DRG 543 ==
LOC: EME 21:36 → 3EAST 02-27 07:11 → EDOF 02-27 07:11 → ENRESERV 02-27 07:17 → 3EAST 02-27 08:06
PROVIDERS: Emergency Medicine; Hospitalist
DX: M80.08XA Age-related osteoporosis with current pathological fracture, vertebra(e), initial encounter for fracture (principal); R53.1 Weakness; I48.0 Paroxysmal atrial fibrillation; N83.202 Unspecified ovarian cyst, left side; I11.0 Hypertensive heart disease with heart failure; I50.9 Heart failure, unspecified; N30.01 Acute cystitis with hematuria; R26.2 Difficulty in walking, not elsewhere classified; K29.70 Gastritis, unspecified, without bleeding; K21.9 Gastro-esophageal reflux disease without esophagitis; J45.909 Unspecified asthma, uncomplicated; K59.09 Other constipation; R32 Unspecified urinary incontinence; E78.5 Hyperlipidemia, unspecified; M51.36 Other intervertebral disc degeneration, lumbar region; R79.1 Abnormal coagulation profile; F41.9 Anxiety disorder, unspecified; Z79.01 Long term (current) use of anticoagulants; Z86.73 Personal history of transient ischemic attack (TIA), and cerebral infarction without residual deficits; Z90.710 Acquired absence of both cervix and uterus
CPT/HCPCS: 72131; 72148; 74022; 74176; 76857; 80048; 80053; 81003; 83690; 84484; 85027; 85610; 85730; 87040; 87086; 93005; 93970; 99281; 99284; J7030

== ENCOUNTER 2018-03-03 22:42 | Emergency (ER) | payer OTHER, MEDICARE ==
[~2018-03-03] VITALS: Ht 152.4 cm; Wt 57.9 kg
[~2018-03-03 22:42] MED LIST changes: +LIDODERM 5% P1 PATCH TD
[2018-03-04 01:42] LABS: HEMOGLOBIN 12.3 G/DL (11.9-15.5); MCH 34.2 PG (29.0-34.0); MCHC 35.1 G/DL (30.0-36.0); MCV 97.2 FL (83-99); PLATELET COUNT 188 K/uL (156-360); RBC DIS.WIDTH-CV 12.9 % (11.8-14.6)
[2018-03-04 01:49] LABS: ALBUMIN 3.6 g/dL (3.2-4.8); CHLORIDE 98 mEq/L (99-109); SODIUM 132 mEq/L (136-147)
[2018-03-04 01:51] LABS: GLUCOSE 115 mg/dL (70-99)
[2018-03-04 01:52] LABS: TOTAL PROTEIN 6.2 g/dL (6.4-8.3)
[2018-03-04 01:55] LABS: ALKALINE PHOSPHATASE 110 IU/L (3-129); CREATININE 0.7 mg/dL (0.6-1.3); GFR ESTIMATE (CALCULATED) > 59 mL/min/; TOTAL BILIRUBIN 0.4 mg/dL (0.0-1.0)
[2018-03-04 01:56] LABS: UREA NITROGEN (BUN) 12 mg/dL (9-23)
[2018-03-04 01:57] LABS: AST (GOT) 18 IU/L (2-34)
[2018-03-04 01:58] LABS: ALT (GPT) 23 IU/L (3-49); LIPASE 69 U/L (1.0-51.0)
[2018-03-04] MEDS ORDERED: MIRALAX17 GM PO (06:19)
[2018-03-04 07:10] VITALS: BP 136/71
== END 2018-03-04 07:10 | disposition home or self-care (01) ==
LOC: EME 22:42
PROVIDERS: Emergency Medicine
DX: K59.00 Constipation, unspecified (principal); I10 Essential (primary) hypertension; I50.9 Heart failure, unspecified; K21.9 Gastro-esophageal reflux disease without esophagitis; J45.909 Unspecified asthma, uncomplicated; F41.9 Anxiety disorder, unspecified; Z86.73 Personal history of transient ischemic attack (TIA), and cerebral infarction without residual deficits; Z79.01 Long term (current) use of anticoagulants; Z90.49 Acquired absence of other specified parts of digestive tract; Z88.0 Allergy status to penicillin; Z88.6 Allergy status to analgesic agent; Z88.8 Allergy status to other drugs, medicaments and biological substances; Z91.040 Latex allergy status
CPT/HCPCS: 74018; 74176; 80053; 83690; 85027; 99281; 99285